=== PATIENT | male | born 1935 | race Caucasian/White ===

== ENCOUNTER 2017-09-03 17:27 | Inpatient (IN) | payer OTHER ==
[~2017-09-03] VITALS: Ht 182.9 cm; Wt 105.0 kg
[~2017-09-03 17:27] MED LIST: Apresoline PO; CHLORPROPAMIDE250 MG PO; COREG 12.5MG12.5 MG PO; COREG6.25 MG PO; ENALAPRIL20 MG PO; FLOMAX(MONOGRA0.4 MG PO; HYDROCHLOROTHIA25 MG PO; PERCOCET 325 MG1 TA2 PO; PLAVIX 75MG TAB75 MG PO; PROCARDIA XL30 MG PO; PROS5 PO; PROTONIX 40MG T40 MG PO; SIMVASTATIN40 MG PO
--- NOTE | 2017-09-03 18:03 | ED NEURO DEFICIT/STROKE ---
See Addendum History of Present Illness General Chief Complaint: Neuro Symptoms/ Deficit Stated Complaint: ?STORKE, COLÓN, FACIAL DROP, NAUSEA, HIGH BP "250" Source: patient Exam Limitations: poor historian Vital Signs & Intake/Output Vital Signs & Intake/Output Vital Signs Date Time Temp Pulse Resp B/P B/P Pulse O2 O2 Flow FiO2 Mean Ox Delivery Rate 09/03 1814 98 Room Air 09/03 1757 67 18 200/86 96 Room Air 09/03 1733 97.4 65 18 208/81 97 Room Air Allergies Coded Allergies: NO KNOWN ALLERGIES (12/02/14) Reconcile Medications [Apresoline] 75 MG PO TID BLOOD PRESSURE Carvedilol (Coreg) 12.5 MG TABLET 12.5 MG PO BID BLOOD PRESSURE Chlorpropamide 250 MG TABLET 2 TAB PO DAILY DIABETES (Reported) Reason to Stop at ADM: change to insulin Finasteride (Propecia) 5 MG TAB 5 MG PO DAILY KIDNEY Nifedipine (Procardia XL) 30 MG TAB.ER.24 60 MG PO DAILY BLOOD PRESSURE OXYCODONE HCL/ACETAMINOPHEN (Percocet 5-325 MG Tablet) 325 MG/5 MG TAB 1 TAB PO Q4P PRN PAIN SCALE 5-6 Pantoprazole Sodium (Protonix) 40 MG TABLET.DR 1 TAB PO DAILY GERD (Reported) change to IV Simvastatin 40 MG TABLET 1 TAB PO QPM CHOLESTEROL (Reported) Tamsulosin Hydrochloride (Flomax) 0.4 MG CAP.ER.24H 0.4 MG PO DAILY PROSTATE/ KIDNEY Triage Note: PT HAS NOT BEEN FEELING WELL LEFT SIDED FACIAL DROOP THAT BEGAN LATE LAST EVENING ABOUT 2100. PT HAVING DIFFICULTY AMBULATING LAST EVENING. Triage Nurses Notes Reviewed? yes Onset: Abrupt Duration: hour(s):, constant, continues in ED Severity: severe New Weakness: left facial Altered Sensations: left facial Vision Problem? Yes HPI: Patient presents for evaluation of a L facial droop that began late last night. Patient was noted by his daughter to have a right facial droop at about 9:00 last night. The patient refused medical evaluation at that time. The patient's daughter went to work today but contacted her father while at work. She noted that his speech was slurred and he had difficulty expressing himself. The patient states that in addition to the difficulty expressing himself he was drooling from the right side of the mouth. When the daughter returned from work this evening she prompted the patient to come to the emergency department for evaluation. Past History Travel History Traveled to [place] past 21 day No Medical History Any Pertinent Medical History? 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 FATHER (CAD). Hx Contributory? No Review of Systems Review of Systems Constitutional: Reports: no symptoms. EENTM: Reports: no symptoms. Respiratory: Reports: no symptoms. Cardiovascular: Reports: no symptoms. GI: Reports: no symptoms. Genitourinary: Reports: no symptoms. Musculoskeletal: Reports: no symptoms. Skin: Reports: no symptoms. Neurological/Psychological: Reports: see HPI. Hematologic/Endocrine: Reports: no symptoms. Immunologic/Allergic: Reports: no symptoms. All Other Systems: Reviewed and Negative Physical Exam Physical Exam General Appearance: SEE BELOW Cranial Nerves: SEE BELOW Comments: Gen.: Well-nourished, well-developed, no acute respiratory distress. Head: Normocephalic, atraumatic. Eyes: Normal inspection bilaterally Ears: Normal inspection bilaterally Nose: Normal inspection Throat/mouth : Moist mucosa Neck: Supple, full range of motion, no goiter, equal carotid pulses, no carotid bruits, Heart: Regular rate and rhythm, no murmurs rubs or gallops Lungs: Clear to auscultation bilaterally with normal air entry Chest: Nontender Back: Normal range of motion Abdomen: Soft, nontender, nondistended, normal bowel sounds Extremities: Normal range of motion grossly, equal radial pulses, no cyanosis clubbing or edema, normal muscle strength to all 4 extremities Neurologic: Inability to left gaze, decreased sensation of the left face, left facial droop, possible right visual field deficit temporally (patient states he can see the hand movements but it is blurry), slurred speech according to daughter, no drift Skin: warm and dry Psychiatric: Calm, cooperative, no apparent delusions or hallucinations Core Measures CVA/TIA Diagnosis: Yes NIH Stroke Scale NIH Stroke Scale Response Value Level of Consciousness alert 0 LOC Questions answers both correctly 0 LOC Commands obeys both correctly 0 Best Gaze partial gaze palsy 1 Visual Nino partial hemianopia 1 Facial Paresis minor 1 Motor Arm - Left no drift 0 Motor Arm - Right no drift 0 Motor Leg - Left no drift 0 Motor Leg - Right no drift 0 Limb Ataxia no ataxia 0 Sensory partial loss 1 Best Language mild to moderate aphasia 1 Dysarthria mild/mod slurring words 1 Total 6 Swallow Evaluation Pass Swallow eval date 09/03/17 Swallow eval time 1936 Sepsis Present: No Sepsis Focused Exam Completed? No Progress Differential Diagnosis: Cheng's Palsy, migraine COLÓN, stroke Plan of Care: Orders Procedure Date/time Status Nothing by Mouth 09/04 B Active Misc Message 09/03 1935 Active ED Holding Orders 09/03 1935 Active Admit to inpatient 09/03 1935 Active Vital Signs 09/03 1935 Active Code Status 09/03 1935 Active TROPONIN LEVEL 09/03 173 Complete PARTIAL THROMBOPLASTIN TIME 09/03 173 Complete PROTHROMBIN TIME 09/03 1737 Complete COMPREHENSIVE METABOLIC PANEL 09/03 1737 Complete CBC WITHOUT DIFFERENTIAL 09/03 1737 Complete EKG 09/03 1737 Active Current Medications Sig/Mónica Start time Last Medication Dose Stop Time Status Admin Aspirin 300 MG ONCE ONE 09/03 1944 UNVr (Aspirin) 09/03 1945 Laboratory Tests 09/03/17 1803: Anion Gap 12, Estimated GFR > 60, BUN/Creatinine Ratio 23.0, Glucose 208 H, Calcium 8.8, Total Bilirubin 1.0, AST 12 L, ALT 18 L, Alkaline Phosphatase 58, Troponin I 0.02, Total Protein 6.5, Albumin 3.6, Globulin 2.9, Albumin/Globulin Ratio 1.2, PT 11.6, INR 1.11, APTT 28, CBC w Diff NO MAN DIFF REQ, RBC 4.77, MCV 89.1, MCH 30.1, MCHC 33.8, RDW 12.6, MPV 10.3, Gran % 69.8, Lymphocytes % 22.7, Monocytes % 6.5, Eosinophils % 0.7, Basophils % 0.3, Absolute Granulocytes 5.4, Absolute Lymphocytes 1.8, Absolute Monocytes 0.5, Absolute Eosinophils 0.1, Absolute Basophils 0 Diagnostic Imaging: Discussed w/RAD: CT Scan. Radiology Impression: PATIENT: DANILO BOB PRESENT AGE: 81 PATIENT ACCOUNT NO: [id number] : 37 LOCATION: [facility] ORDERING PHYSICIAN: Emanuel BROWN SERVICE DATE: 09/03/17 EXAM TYPE: CAT - CT HEAD WO IV CONTRAST EXAMINATION: CT HEAD WITHOUT CONTRAST CLINICAL INFORMATION: Left facial droop. COMPARISON: None. TECHNIQUE: Contiguous axial images of the brain were obtained without IV contrast. DLP: 619 mGy-cm. FINDINGS : There are no pathologic extra-axial fluid collections. The lateral, third, fourth ventricles are prominent, though age-appropriate and concordant with the appearance of the sulci. There is no evidence for acute intraparenchymal hemorrhage or infarct. There is neither mass nor mass effect. There is periventricular low-attenuation present indicative of small vessel disease. 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 The paranasal sinuses and mastoid air cells are clear. There are no osseous lesions. IMPRESSION: No evidence for acute intracranial injury. . Chronic changes as stated above. DICTATED BY: Brenton Naranjo MD DATE/TIME DICTATED:09/03/171804 SENIOR GOVERNMENT PROGRAM ANALYST:TIESHA DATE/TIME TRANSCRIBED:1804 CONFIDENTIAL, DO NOT COPY WITHOUT APPROPRIATE AUTHORIZATION. < Electronically signed in Other Vendor System> SIGNED BY: Brenton Naranjo MD 09/03/171813 Initial ED EKG: NSR Comments: Although patient passed bedside swallowing evaluation, he complained of left facial and mouth numbness and made swallowing difficult. He did not cough or choke. However, given his comment on the numbness, I have placed him in NPO status. Departure Departure Disposition: STILL A PATIENT Condition: Stable Clinical Impression Primary Impression: CVA (cerebral vascular accident) Qualifiers: CVA mechanism: unspecified Qualified Code: I63.9 - Cerebral infarction, unspecified Referrals: Ruby Vincent APRN (PCP/Family) Departure Forms: Customer Survey General Discharge Information Admission Note Spoke With: Aracely Villanueva MD Documentation of Exam: Documentation of any treatments & extenuating circumstances including Concerns Regarding Discharge (functional status, medication knowledge or non-compliance, living conditions, etc.) that warrant an admission rather than observation: Patient has suffered a CVA with resulting left facial droop and dysphasia. I feel he requires hospitalization for an expedited evaluation of potentially reversible causes of stroke including carotid artery disease and cardioembolic phenomenon. In addition he should have a neurology consultation and initiation of antiplatelet therapy. MRI, Carotid Doppler studies echocardiography/ cardiology consultation and PT/OT consultations should be considered given the patient's persistent deficit. Blood pressure should be monitored and treated if excessively high. Formal swallowing evaluation should be performed to assess aspiration risk. Given this patient's advanced age and medical comorbidities I feel he will require a multiple day hospitalization.
--- NOTE | 2017-09-03 18:14 | CT SCAN REPORT ---
EXAMINATION: CT HEAD WITHOUT CONTRAST CLINICAL INFORMATION: Left facial droop. COMPARISON: None. TECHNIQUE: Contiguous axial images of the brain were obtained without IV contrast. DLP: 619 mGy-cm. FINDINGS: There are no pathologic extra-axial fluid collections. The lateral, third, fourth ventricles are prominent, though age-appropriate and concordant with the appearance of the sulci. There is no evidence for acute intraparenchymal hemorrhage or infarct. There is neither mass nor mass effect. There is periventricular low-attenuation present indicative of small vessel disease. 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 The paranasal sinuses and mastoid air cells are clear. There are no osseous lesions. IMPRESSION: No evidence for acute intracranial injury. . Chronic changes as stated above.
[2017-09-03 18:31] LABS: ABSOLUTE BASOPHIL COUNT 0 /CUMM (0.0-0.2); ABSOLUTE EOSINOPHIL COUNT 0.1 /CUMM (0.0-0.7); ABSOLUTE GRANULOCYTE CT 5.4 /CUMM (1.4-6.5); ABSOLUTE LYMPH COUNT 1.8 /CUMM (1.2-3.4); ABSOLUTE MONOCYTE COUNT 0.5 /CUMM (0.10-0.60); BASOPHIL % 0.3 % (0.0-2.0); EOSINOPHIL % 0.7 % (0-5); GRANULOCYTE % 69.8 % (42.2-75.2); HEMATOCRIT 42.5 % (42-52); MEAN CORPUSCULAR HGB 30.1 PG (27.0-31.0); MEAN CORPUSCULAR HGB CONC 33.8 G/DL (33.0-37.0); MEAN CORPUSCULAR VOLUME 89.1 FL (80.0-94.0); MEAN PLATELET VOLUME 10.3 FL (7.4-10.4); PLATELET COUNT 170 /CUMM (130-400); RBC DISTRIBUTION WIDTH 12.6 % (11.5-14.5); RED BLOOD CELL CT 4.77 /CUMM (4.70-6.10); WHITE BLOOD CELL COUNT 7.8 /CUMM (4.8-10.8)
[2017-09-03 18:49] LABS: PT 11.6 SEC (9.4-12.5); PTT 28 SEC (25-37)
--- NOTE | 2017-09-03 20:17 | History & Physical ---
Leighton ANN,[facility] 09/03/17 2016: General Information and HPI MD Statement: I have seen and personally examined DANILO LUNA and documented this H&P. The patient is a 81 year old M who presented with a patient stated chief complaint of [cva sx concerns from family]. Source of Information: patient, family Exam Limitations: language barrier, kinyarwanda speaking only History of Present Illness: 81 year old M with a pmhx of cad s/p 4 vessel cabg, htn, hld, UGI bleed, diabetes, anxiety presenting for concerns from his family regarding stroke symptoms. History is given mostly by his daughter via translation as pt only speaks kinyarwanda. The family states that the patient's last time, was 2 nights ago. When he went to bed. The family states that yesterday morning the patient was wobbly, dizzy, had double vision and what they considered fall. The family explained that the patient broke the medial plane and kneeled on 1 leg and caught himself before he fell. The family states that his symptoms persisted throughout the day. When his daughter returned home from work she noticed that he had a right facial droop and slurring of speech. They also noted his speech at times will have transient flight of ideas without complete thoughts in his sentences. The patient refused to go to the hospital. He was given Neurontin, ibuprofen and some soup. At 11 AM today the daughter called to check on the patient who stated that he did not feel good. He was forced to the emergency department from his daughter. The daughter states that the patient's overall mildly to the right and left. The patient complains of diffuse numbness of his extremities. He also noted some headaches yesterday. The daughter also noticed that the patient had blue discoloration of his feet which is now resolved. He was nauseous yesterday. He does have abdominal pain which is chronic. The patient denies any fevers, chills, chest pain, shortness breath, seizure symptoms, vision changes, or changes in elimination. Allergies/Medications Allergies: Coded Allergies: NO KNOWN ALLERGIES (12/02/14) Past History Travel History Traveled to [place] past 21 day No Medical History Neurological: NONE EENT: glaucoma Cardiovascular: CAD, hypertension, hyperlipidemia, BYPASS x 4 Respiratory: NONE Gastrointestinal: upper GI bleed Hepatic: NONE Renal: hematuria Musculoskeletal: NONE Psychiatric: anxiety Endocrine: diabetes Blood Disorders: NONE Cancer(s): NONE PACKAGE SORTER/Reproductive: NONE History of MRSA: No History of VRE: No History of CDIFF: No Surgical History Surgical History: CABG (5 yrs ago at [facility]) Past Family/Social History Family History Relations & Conditions if any BROTHER (throat cancer). FATHER (CAD). Psychosocial History Services at Home: None ETOH Use: denies use Illicit Drug Use: denies illicit drug use Review of Systems Review of Systems Constitutional: Reports: see HPI. EENTM: Reports: see HPI (R facial droop). GI: Reports: abdominal pain, nausea. Musculoskeletal: Reports: see HPI. Neurological/Psychological: Reports: see HPI (speech slur), headache, numbness. Exam & Diagnostic Data Last 24 Hrs of Vital Signs/I&O Vital Signs Date Time Temp Pulse Resp B/P B/P Pulse O2 O2 Flow FiO2 Mean Ox Delivery Rate 09/04 1159 98.7 53 18 156/68 94 Room Air 09/04 1017 99.4 69 18 170/74 09/04 1010 99.4 69 18 170/74 03 1005 99.4 69 18 170/74 97 Room Air 09/04 0851 99.5 71 18 218/108 09/04 0830 99.5 71 18 218/108 97 Room Air 09/04 0649 204/98 09/04 0542 72 16 220/90 09/04 0302 84 16 180/84 09/04 0148 64 16 214/98 09/04 0110 60 16 220/98 09/04 0046 60 16 220/98 09/04 0015 76 16 230/90 09/04 0015 76 16 230/90 09/03 2122 98.5 56 22 228/96 95 Room Air 09/03 1814 98 Room Air 09/03 1757 67 18 200/86 96 Room Air 09/03 1733 97.4 65 18 208/81 97 Room Air Intake & Output 09/04 1600 09/04 0800 09/04 0000 Intake Total 0 Output Total 500 Balance -500 0 Intake, Oral 0 Output, Urine 500 Patient 180 lb Weight Weight Estimated Measurement Method Physical Exam General Appearance Alert, Cooperative, No Acute Distress, passed bedside swallow HEENT left eye limited horizontal gaze. R eye limited medial horizontal gaze. R facial droop. Unable to smile on L side. rest of cranial nerves grossly intact. peripheral justin grossly intact but reduced on R side ?due to glaucoma., R carotid bruit Cardiovascular systolic murmur Lungs Clear to Auscultation, Normal Air Movement Abdomen Normal Bowel Sounds, Soft, No Tenderness Neurological sensation intact b/l extremities. 5/5 strength all extremities. normal babinski b/l. 2+ L patellar reflex vs 1+ on R. Vascular 2+ radial and pedal pulses Last 24 Hrs of Labs/Darell: Laboratory Tests 09/04/17 0900: Troponin I Cancelled 09/04/17 0809: Troponin I 0.04 09/04/17 0558: Anion Gap 14, Estimated GFR > 60, BUN/Creatinine Ratio 21.1, Hemoglobin A1c 7.9 H, Triglycerides 103, Cholesterol 194, LDL Cholesterol, Calc 132 H, HDL Cholesterol 42, Cholesterol/HDL Ratio 5 H, CBC w Diff NO MAN DIFF REQ, RBC 4.91 , MCV 89.6, MCH 30.3, MCHC 33.8, RDW 12.8, MPV 10.0, Gran % 62.9, Lymphocytes % 27.2, Monocytes % 7.5, Eosinophils % 1.8, Basophils % 0.6, Absolute Granulocytes 5.5, Absolute Lymphocytes 2.4, Absolute Monocytes 0.7 H, Absolute Eosinophils 0.2, Absolute Basophils 0.1 09/04/17 0046: Troponin I 0.04 09/03/17 1803: Anion Gap 12, Estimated GFR > 60, BUN/Creatinine Ratio 23.0, Glucose 208 H, Calcium 8.8, Total Bilirubin 1.0, AST 12 L, ALT 18 L, Alkaline Phosphatase 58, Troponin I 0.02, Total Protein 6.5, Albumin 3.6, Globulin 2.9, Albumin/Globulin Ratio 1.2, PT 11.6, INR 1.11, APTT 28, CBC w Diff NO MAN DIFF REQ, RBC 4.77, MCV 89.1, MCH 30.1, MCHC 33.8, RDW 12.6, MPV 10.3, Gran % 69.8, Lymphocytes % 22.7, Monocytes % 6.5, Eosinophils % 0.7, Basophils % 0.3, Absolute Granulocytes 5.4, Absolute Lymphocytes 1.8, Absolute Monocytes 0.5, Absolute Eosinophils 0.1, Absolute Basophils 0 Assessment/Plan Assessment: A: 81 year old M with a pmhx of cad s/p 4 vessel cabg, htn, hld, UGI bleed, diabetes, anxiety presenting for concerns from his family regarding stroke symptoms P: #suspected cva Trops <.[address]: No evidence for acute intracranial injury. . Chronic changes as stated above. 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 Bill -mri -carotid US -echo -lipid panel -trops ekg @ 8am -pt/ot -currently, NPO swallow eval #htn Patient has hypertension with severe medication noncompliance Hx of systolic BP >200 even upon admission 2 years ago -Blood pressure goal 180-190 -Resume oral home medications once past swallow eval #diabetes -Begin NovoLog sliding scale #DVT prophylaxis with subcutaneous heparin #Full code As Ranked By This Provider Problem List: 1. CVA (cerebral vascular accident) Qualifiers CVA mechanism: unspecified Qualified Code: I63.9 - Cerebral infarction, unspecified 2. HTN (hypertension) 3. Non compliance w medication regimen 4. Non compliance with medical treatment Core Measures/Misc (03/23) Acute Coronary Syndrome ACS Diagnosis: No Congestive Heart Failure Congestive Heart Failure Diagnosis No Cerebrovascular Accident CVA/TIA Diagnosis: Yes NIH Stroke Scale: Total 5 Date Last Known Well: 09/01/17 Symptom Start Date: 09/02/17 Swallow Evaluation Pass VTE (View Protocol) VTE Risk Factors Acute Medical Illness No Mechanical VTE Prophylaxis d/t Other No VTE Pharm Prophylaxis d/t NA PharmProphylax ordered Sepsis (View protocol) Sepsis Present: No Aracely Villanueva 09/04/17 0402: General Information and HPI Allergies/Medications Home Med list Aspirin (Ecotrin*) 81 MG TABLET.DR 1 TAB PO DAILY HEART/BLOOD (Reported) Carvedilol 6.25 MG TABLET 1 TAB PO BID HEART/BP (Reported) Chlorpropamide 250 MG TABLET 2 TAB PO DAILY DM (Reported) Enalapril Maleate 20 MG TABLET 1 TAB PO BID BP (Reported) Gabapentin (Neurontin) 100 MG CAPSULE 1 CAP PO TID UNKNOWN (Reported) Pantoprazole Sodium 40 MG TABLET.DR 1 TAB PO DAILY GI (Reported) Attending MD Review Statement Attending Statement Attending MD Statement: examined this patient, discuss w/resident/PA/AUTOMATIC TIRE TESTER, agreed w/resident/PA/AUTOMATIC TIRE TESTER, discussed with family, reviewed EMR data (avail), reviewed images, amended to note Attending Assessment/Plan: CC: Facial drooping PMH: HTN, HLD, DM, CAD S/P CABG, history of GI bleed for ear back, history of renal stone, anxiety Patient speaks Syriac. History is obtain from patient's family. Patient's family noted that patient had been more unsteady on his gait, almost fell on his knees yesterday. Yesterday evening they noticed left-sided facial drooping and speech difficulty. Symptoms persisted even this morning and patient had another fall and one episode of vomiting. Patient was brought in ER for the symptoms. Patient appears to be noncompliant with his medications according to family and he was very reluctant to come to hospital. 14 point ROS unremarkable Vitals: Afebrile, pulse in 60s, RR 18, blood pressure 208/81 on arrival, saturating well on room air. On exam: A, cooperative, no acute distress, neck supple, JVD normal, no lymphadenopathy, mucosa moist, left facial muscle weakness, incomplete eye closure, left lateral rectus palsy, vertical gaze normal, pupils equal and reactive bilaterally, strength in upper extremity and lower extremity intact, cerebellar signs negative, gait could not be assessed, +1 leg edema, no obvious skin rashes or inflammation CVS: S1-S2, RRR. RS: Clear to auscultate bilaterally. Abdomen: Soft, NT, ND, bowel sounds present. CT head without IV contrast: No evidence for acute intracranial injury. . Chronic changes as stated above. Assessment and plan 81-year-old male with multiple comorbidities and noncompliant with his home medication presented in ER for left-sided facial droop, unsteady gait, fall and one episode of vomiting. Patient's family noticed symptoms starting yesterday and persisted today so he was brought in ER. Patient speaks Syriac and does not complain about anything currently. Patient was reluctant to come to ER. Patient is found to have left facial muscle weakness, left lateral rectus weakness, deficiency in horizontal gaze, otherwise strength intact in upper and lower extremities, negative cerebellar signs. Given his acute tear of symptoms which started yesterday this appears more likely secondary to CVA, patient is out of window for any TPA. CT head was negative for hemorrhage or infarct. MRI should be obtained for further information regarding CVA versus other intracranial pathology. Patient's blood pressure is significantly elevated, patient had been noncompliant with medication at home. Given the possibility of stroke we will continue permissive hypertension at this point. + Suspected CVA + Hypertensive urgency + History of HLD, DM, CAD S/P CABG, history of GI bleed for ear back, history of renal stone, anxiety - Admit to telemetry - Continuous telemetry monitoring - Serial troponin and EKG - MRI brain without contrast - 2-D echocardiogram in a.m. - DVT prophylaxis - Obtain lipid profile - Continue aspirin - Swallow evaluation - Continue atorvastatin if passed swallow evaluation - Continue sliding scale insulin - Neurologic consult - Serial neuro checks - Carotid Dopplers - Adequate pain control - When necessary hydralazine or labetalol for blood pressure more than 220 systolic, resume his home medications once he passes swallow evaluation - OT PT evaluation Araceli Agudelo 09/04/17 0449: Core Measures/Misc (03/23) Cerebrovascular Accident Time Last Known Well: 1999 Symptom Start Time: 1999 Reason tPA not ordered Medical Contraindication (out ot tPA window) Current/Past Hx AFib/AFlutter No Resident Review Statement Resident Statement: examined this patient, discussed with logistics intern, agreed with logistics intern, discussed with family, reviewed EMR data (avail), discussed with nursing , amended to note Other Findings: Mr Luna is a 81 year old Syriac speaking man, who is from [facility] was known to be in his usual state of health unitl two days ago; last known normal was 48hrs ago by his daughter. History was limited due to language barrier. He was brought in with a chief concern of slurring of speech, gait unstadiness, high blood pressure and a mechanical fall. He has a past medical history of coronary artery disease status post CABG ([facility], 10 years ago, but follows up with Dr. Bill), hyperlipidemia, uncontrolled hypertension (medication noncompliance), history of upper GI bleed, type 2 diabetes, anxiety, nephrolithiasis status post ESWL in 2014. Nonsmoker, nonalcoholic. Travels to [facility] every 6 months, and lives with his son. No previous episode of stroke in the past. The symptoms were noticed 48 hrs prior to the presentation, with gait unsteadiness that began acutely. He later developed slurred speech, and had word finding difficulty. He was reluctant to seek medical attention, and was brought in after he had a mechanical fall the a.m. of presentation. He did not have any loss of consciousness, bladder bowel dysfunction, seizures, vision changes. Reported history of glaucoma, but did not have not have any new visual defects. No vertigo, new hearing deficits, no vertigo new hearing deficits. Other cardiac related review of systems such as palpitations, chest pain, shortness of breath, lightheadedness negative. At the time of admission, vitals-temperature 97.4, pulse rate 65, respiration 18 , blood pressure 208/81, 97% on room air. On examination, he was alert and oriented 3. No pallor was noted. He had right-sided facial droop, weakness on left side of the face, drooling on right side, horizontal gaze was affected with clear lateral gaze palsy, vertical gaze and affected. Other cranial levels within normal limits. Sensory system within normal limits. Right-sided knee reflex 1+. No cerebellar deficits, but gait could not be tested. Cardio vascular examination revealed right-sided carotid murmur, crescendo decrescendo systolic murmur. Lung examination within normal limits. Pertinent lab findings-WBC 7.8, hemoglobin 14.4. Glucose 208, platelets 170. BUN 23, serum creatinine 1.0. Liver chemistries within normal limits. Cardiac enzymes-troponin 0.02, 0.04. EKG revealed normal sinus rhythm, normal axis, T- wave flattening diffusely in V4-V6, and inferior leads. CT scan of the head did not reveal any acute intracranial pathology such as infarcts or hemorrhage, however. An old right MCA territory infarction with no midline shift. Last echocardiogram done in 2014 ([address] Dr[address] Bill) revealed moderate left ventricle hypertrophy, left ventricle ejection fraction estimated at 70%, with normal systolic function with no regional wall abnormalities. Etiology in his case that has caused an acute neurological changes is due to cerebrovascular accident, likely ischemic. He has new left-sided facial weakness, gaze deficits, mild motor deficits indicating a lesion in the middle cerebral artery, or pontine region. Persistent uncontrolled hypertension may also have caused lacunar infarcts in his case. Other causes such as defect in posterior circulation is possible, which needs to be kept in the differential. Plan: 1. CVA- he clearly has symptoms of right-sided MCA infarct, but CT scan head did not reveal any new infarct, but would treat this patient as ischemic stroke until proven otherwise by an MRI. Symptoms started approximately 48 hours, and clearly out of the TPA window. He underwent bedside swallow eval, with continued drooling from the right side. Aspirin, Lipitor started. Neurology consult to be obtained. Bedrest. Fall precautions. Physical therapy, swallow evaluation. Check carotid ultrasound. Although no cardiac symptoms were noted, but check echocardiogram for new auscultatory findings of aortic stenosis. Check lipid panel. Every 4 neuro checks. 2. Uncontrolled hypertension-medication noncompliance. Previous history of uncontrolled hypertension, and medication list is incomplete. Permissive hypertension at this time. Intravenous hydralazine, enalaprilat as needed for blood pressure above systolic 220. Trend EKG, troponin. Resume oral antihypertensives, after cleared by swallow evaluation. Cardiology to be notified. 3. Diabetes-patient on sulfonylurea. Discontinue at this time. Start insulin sliding scale, Accu-Cheks every 6. Reevaluate the need for sulfonylurea, and would benefit from metformin. Check HbA1c. Housekeepin. DVT prophylaxis-subcutaneous heparin. 2. Precautions-fall. 3. IV lines-peripheral. 4. Medication reconciliation-incomplete. Please reconcile medications, as the patient's family is unclear of the doses. 5. Consults-neurology, cardiology-Dr. Bill.
[2017-09-03] MEDS ORDERED: NEURONTIN100 M1 PO (20:55)
[2017-09-03] MEDS ORDERED: CARVEDILOL6.25 M1 PO (20:56)
[2017-09-03] MEDS ORDERED: CHLORPROPAMIDE PO (20:57)
[2017-09-03] MEDS ORDERED: PANTOPRAZOLE SO40 M1 PO (20:57)
[2017-09-03] MEDS ORDERED: ENALAPRIL MALEA20 M1 PO (20:58)
[2017-09-03] MEDS ORDERED: ASPIRIN EC81 M1 PO (20:59)
--- NOTE | 2017-09-04 04:03 | Admission Certification ---
Admission Certification Certification Statement - As attending physician, I certify that at the time of - admission, based on clinical presentation, severity of - symptoms, need for further diagnostic testing and - therapeutic interventions, and risk of adverse outcomes - without in-hospital treatment, in my clinical assessment, - this patient requires an acute hospital stay for a minimum - of two nights or longer. I have also considered psychsocial - factors such as support system, advanced age, financial - issues, cognitive issues, and failed out-patient treatments, - past re-admission history, safety of patient, and lack of - compliance as applicable. Specific rationale supporting this admission is: Suspected CVA
[2017-09-04 06:07] LABS: ABSOLUTE BASOPHIL COUNT 0.1 /CUMM (0.0-0.2); ABSOLUTE EOSINOPHIL COUNT 0.2 /CUMM (0.0-0.7); ABSOLUTE GRANULOCYTE CT 5.5 /CUMM (1.4-6.5); ABSOLUTE LYMPH COUNT 2.4 /CUMM (1.2-3.4); ABSOLUTE MONOCYTE COUNT 0.7 /CUMM (0.10-0.60); BASOPHIL % 0.6 % (0.0-2.0); EOSINOPHIL % 1.8 % (0-5); GRANULOCYTE % 62.9 % (42.2-75.2); MEAN CORPUSCULAR HGB 30.3 PG (27.0-31.0); MEAN CORPUSCULAR HGB CONC 33.8 G/DL (33.0-37.0); MEAN CORPUSCULAR VOLUME 89.6 FL (80.0-94.0); PLATELET COUNT 173 /CUMM (130-400); RBC DISTRIBUTION WIDTH 12.8 % (11.5-14.5); RED BLOOD CELL CT 4.91 /CUMM (4.70-6.10); WHITE BLOOD CELL COUNT 8.7 /CUMM (4.8-10.8)
--- NOTE | 2017-09-04 07:08 | PN- Housestaff ---
Dontrell ANN,[facility] 09/04/17 0708: Subjective Follow-up For: Suspected CVA Hypertensive urgency Subjective: Patient is seen and examined at bedside, he gabonese speaking and does not provide any complaints, continues to have facial droop, will be going to CTA and MRI today Review of Systems Constitutional: Reports: see HPI. Objective Last 24 Hrs of Vital Signs/I&O Vital Signs Date Time Temp Pulse Resp B/P B/P Pulse O2 O2 Flow FiO2 Mean Ox Delivery Rate 09/04 1017 99.4 69 18 170/74 09/04 1010 99.4 69 18 170/74 09/04 1005 99.4 69 18 170/74 97 Room Air 09/04 0851 99.5 71 18 218/108 09/04 0830 99.5 71 18 218/108 97 Room Air 09/04 0649 204/98 09/04 0542 72 16 220/90 09/04 0302 84 16 180/84 09/04 0148 64 16 214/98 09/04 0110 60 16 220/98 09/04 0046 60 16 220/98 09/04 0015 76 16 230/90 09/04 0015 76 16 230/90 09/03 2122 98.5 56 22 228/96 95 Room Air 09/03 1814 98 Room Air 09/03 1757 67 18 200/86 96 Room Air 09/03 1733 97.4 65 18 208/81 97 Room Air Intake & Output 09/04 1600 09/04 0800 09/04 0000 Intake Total 0 Output Total 500 Balance -500 0 Intake, Oral 0 Output, Urine 500 Patient 180 lb Weight Weight Estimated Measurement Method Physical Exam General Appearance: Alert, Oriented X3, Cooperative, No Acute Distress HEENT: Atraumatic, PERRLA, EOMI, Mucous Membr. moist/pink Cardiovascular: Normal S1, Normal S2, No Murmurs Lungs: Clear to Auscultation Abdomen: Normal Bowel Sounds, Soft, No Tenderness Neurological: Normal Speech, Strength at 5/5 X4 Ext, Normal Tone, Sensation Intact, left facial muscle weakness Extremities: No Clubbing, No Cyanosis, No Edema Assessment/Plan Assessment: 81-year-old male with PMH of HTN, HLD, DM, CAD S/P CABG, history of GI bleed , history of renal stone, anxiety non compliant with his home meds presented in ER for left-sided facial droop, unsteady gait, fall and one episode of vomiting. For 2 days which make him outside of the TPA window. Patient's blood pressure is significantly elevated, patient had been noncompliant with medication at home. #Suspected CVA: Continue to monitor on telemetry Vitals every shift Neuro checks every 2 hours MRI pain CTA brain Neurology consult placed with appreciated the recommendation LDL cholesterol was high, Start statin Start Plavix 75 mg daily Continue aspirin 81 mg daily #Hypertensive urgency Systolic Blood pressure was noticed to be above 200 The patient was given 1 dose of labetalol We'll continue home meds including lisinopril and carvedilol Allow permissive hypertension(A 20% drop in BP is acceptable over the next 24 hours) Echocardiography # DM: Fingerstick glucose Insulin sliding scale Patient is full code DVT prophylaxis with subcutaneous heparin Heart healthy diet Problem List: 1. CVA (cerebral vascular accident) 2. Hypertensive urgency Pain Ratin Pain Location: n/A Pain Goal: Remain pain free Pain Plan: pathway Tomorrow's Labs & Rationales: cbc beBrenton Rain MD 09/04/17 1558: Attending MD Review Statement Attending Statement Attending MD Statement: examined this patient, discuss w/resident/PA/GERIATRICS PHYSICIAN, agreed w/resident/PA/GERIATRICS PHYSICIAN, discussed with family, reviewed EMR data (avail), discussed with nursing, reviewed images, amended to note Attending Assessment/Plan: The patient was seen and discussed with house staff. CTA of neck & head done- no significant vascular occlusion. CVA most likely secondary to HTN (he was non- compliant with medication). MRI unavailable at present. Neurology input appreciated. Discussed with grandson who stated the patient does have some dysarthria, however no expressive or receptive aphasia.
--- NOTE | 2017-09-04 09:10 | Cons- Cardiology ---
General Information and HPI Consulting Request Date of Consult: 09/04/17 Requested By: Aracely Villanueva MD History of Present Illness: Gray is a 81 year old male who carries a history of hypertension, diabetes mellitus, and coronary artery disease s/p bypass x4. He also carries a prior history of GI bleed. About two days ago this patient was noted to be unwell. He was off balance and appeared to have facial asymmetry. His speech was a bit slurred according to his [id number]. Because he was not improving he was brought to the ER today. He denies any chest discomfort, shortness of breath, lightheadedness or palpitations. This patient has been non-compliant with office follow-ups, taking medications and refused to take aspirin due to concern about a prior GI bleed. This patient was last admitted to the hospital for a severe hypertensive excursion. He did not know his medications at that time and I was convinced that he was not taking them correctly. On last office visit he did report some mild intermittent chest tightness, however, it was not entirely clear if it was exacerbated by physical exertion. It apparently was a non-radiating discomfort. any discomfort, shortness of breath, lightheadedness, or palpitations. Of note, it is rather difficult to communicate with this patient and his daughter was interpreting.He has a history of noncompliance with medications and follow up. b.i.d. Gray apparently had tried the high dose of Coreg and it created some symptoms of lightheadedness and therefore he returned back to his previous dose of 6.25 mg b.i.d. On last visit I started nifedipine but the patient never took this medication. To Review the Patient's Past History: I initially saw this patient for a moderate exertional precordial chest pressure that radiated to his neck, associated with dyspnea and diaphoresis. A cardiac catheterization showed three vessel coronary artery disease, which led to bypass surgery consisting of a saphenous vein graft to the first diagonal, a separate saphenous vein graft to the left circumflex, and a sequential saphenous vein graft to the right PDA and right posterior marginal artery. The details of his cardiac catheterization are as follows: The left main was normal. The LAD harbored luminal irregularities throughout its course with a 70% distal stenosis prior to wrapping around the apex. The LAD parented a moderate sized first diagonal branch with a 70% ostial stenosis. It also parented a small to moderate size second diagonal branch with a 60% ostial stenosis. The left circumflex has a 70% mid stenosis. It parents an OM-2 branch, which was a bifurcating vessel. This vessel has a 99% ostial stenosis and receives left to left collaterals. The right coronary artery is dominant and diffusely diseased with a 50% mid stenosis and a 75% distal stenosis. The RCA parents a posterior lateral branch with a 70% stenosis. Off this stenosis, there is a secondary branch with a 90% ostial stenosis. Left ventriculography showed an overall EF of 60%. In November 2008, the patient had a stress test which did show evidence of lateral and inferior lateral ischemia with an overall normal EF of 65%. The patient was able to exercise for 6 minutes 9 seconds following a Rubin protocol and had no chest discomfort with this activity. There were significant downsloping ST depressions in the inferior and lateral leads. I was inclined to treat this with medical therapy and in that regard started him on Nitroglycerin Patch at 0.4 mg an hour for 12 hours a day, which the patient has not been taking. The patient's most recent echocardiogram from November of 2008 showed mild to moderate left ventricular hypertrophy likely related to hypertension. His overall EF was normal. In terms of cardiac valves, there was mild mitral, mild tricuspid, and trace pulmonic regurgitation. Allergies/Medications Allergies: Coded Allergies: NO KNOWN ALLERGIES (12/02/14) Home Med List: Aspirin (Ecotrin*) 81 MG TABLET.DR 1 TAB PO DAILY HEART/BLOOD (Reported) Carvedilol 6.25 MG TABLET 1 TAB PO BID HEART/BP (Reported) Chlorpropamide 250 MG TABLET 2 TAB PO DAILY DM (Reported) Enalapril Maleate 20 MG TABLET 1 TAB PO BID BP (Reported) Gabapentin (Neurontin) 100 MG CAPSULE 1 CAP PO TID UNKNOWN (Reported) Pantoprazole Sodium 40 MG TABLET.DR 1 TAB PO DAILY GI (Reported) Review of Systems Review of Systems: A review of systems was unremarkable other than the above. 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 FATHER (CAD). Family History Reviewed? Brother: CAD in 70's. Psychosocial History Services at Home: None ETOH Use: denies use Illicit Drug Use: denies illicit drug use Exam & Diagnostic Data Vital Signs and I&O Vital Signs Date Time Temp Pulse Resp B/P B/P Pulse O2 O2 Flow FiO2 Mean Ox Delivery Rate 09/04 0851 99.5 71 18 218/108 09/04 0830 99.5 71 18 218/108 97 Room Air 09/04 0649 204/98 09/04 0542 72 16 220/90 09/04 0302 84 16 180/84 09/04 0148 64 16 214/98 09/04 0110 60 16 220/98 09/04 0046 60 16 220/98 09/04 0015 76 16 230/90 09/04 0015 76 16 230/90 09/03 2122 98.5 56 22 228/96 95 Room Air 09/03 1814 98 Room Air 09/03 1757 67 18 200/86 96 Room Air 09/03 1733 97.4 65 18 208/81 97 Room Air Intake & Output 09/04 1600 09/04 0800 09/04 0000 09/03 1600 09/03 0800 09/03 0000 Intake Total 0 Output Total 500 Balance -500 0 Intake, Oral 0 Output, Urine 500 Patient 180 lb Weight Weight Estimated Measurement Method Physical Exam: General: WD/WN male in NAD; alert and oriented x 3 HEENT: left facial droop, atraumatic, PERRl, inability to look to the left Neck: no JVD, no carotid bruit Heart: RRR with 2/6 systolic murmur Lungs: clear bilaterally Abdomen: soft, NT, +ve bowel sounds Extremties: No edema Neuro: left facial droop, left sided neglect, possible inability to perform a left sided gaze, slightly slurred speech Assessment/Plan Assessment/Plan * This patient appears to have had a stroke with late presentation since it occured two days ago. He has not followed up in the office and his blood pressure is out of control. He has a history of not taking his medications and previously refused to take aspirin due to concern about another GI bleed. Obtain an echocardiogram and carotid dopplers. * We will allow permissive hypertension especially since this patient is used to very high pressures. A 20% drop in BP is reasonable over the next 24 hours. Continue Enalapril and Coreg for now since he may not have been taking these medications and then increase as necessary to reach our BP goals. Low sodium diet. * Begin Plavix and a statin. Consult Acknowledgment - Thank you for your consult request.
--- NOTE | 2017-09-04 09:11 | Cons- Neurology ---
General Information and HPI Consulting Request Date of Consult: 09/04/17 Requested By: Aracely Villanueva MD Reason for Consult: stroke Source of Information: EMR, ED MD History of Present Illness: 81-year-old man brought in after his [id number] noticed a left-sided facial droop. Symptoms had been present for at least 24 hours. He initially refused medical attention. Systolic blood pressure was over 200 in the ED. 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 He has apparently avoided aspirin due to a concern about GI bleed. He has also had some gait instability over the past few days. Some left-sided inattention has also been noted by staff. He is Croatian speaking primarily, and wears glasses and hearing aids. Hence, even with the manager intensive care program, the history was difficult to obtain directly from the patient. Allergies/Medications Allergies: Coded Allergies: NO KNOWN ALLERGIES (12/02/14) Home Med List: Aspirin (Ecotrin*) 81 MG TABLET.DR 1 TAB PO DAILY HEART/BLOOD (Reported) Carvedilol 6.25 MG TABLET 1 TAB PO BID HEART/BP (Reported) Chlorpropamide 250 MG TABLET 2 TAB PO DAILY DM (Reported) Enalapril Maleate 20 MG TABLET 1 TAB PO BID BP (Reported) Gabapentin (Neurontin) 100 MG CAPSULE 1 CAP PO TID UNKNOWN (Reported) Pantoprazole Sodium 40 MG TABLET.DR 1 TAB PO DAILY GI (Reported) Current Medications: Current Medications Sig/Mónica Start time Last Medication Dose Route Stop Time Status Admin Aspirin 0 .STK-MED ONE 09/04 1012 DC PO Aspirin 81 MG DAILY 09/04 1000 AC 09/04 PO 1010 Aspirin 300 MG ONCE ONE 09/03 1945 DC 09/03 LA 09/03 194 2141 Atorvastatin Calcium 80 MG 1700 09/04 1700 AC PO Carvedilol 6.25 MG BID 09/04 1000 AC 09/04 PO 1017 Clopidogrel Bisulfate 0 .STK-MED ONE 09/04 1158 DC PO Clopidogrel Bisulfate 75 MG DAILY 09/04 1117 AC 09/04 PO 1153 Enalaprilat 0.0625 MG ONCE ONE 09/03 2330 CAN IV 09/03 2331 Heparin Sodium 0 .STK-MED ONE 09/04 0725 DC (Porcine) .ROUTE Heparin Sodium 0 .STK-MED ONE 09/03 2215 DC (Porcine) .ROUTE Heparin Sodium 5,000 UNIT Q8 09/03 2200 AC 09/04 (Porcine) SC 0722 Hydralazine HCl 5 MG ONCE ONE 09/04 0100 DC 09/04 IV 09/04 0101 0110 Hydralazine HCl 0 .STK-MED ONE 09/04 0010 DC .ROUTE Hydralazine HCl 5 MG ONCE ONE 09/03 2345 DC 09/04 IV 09/03 2346 0015 Insulin Aspart 0 TIDAC 09/04 1700 AC SC Insulin Human Regular 0 Q6 09/03 2359 DC 09/04 SC 0015 Labetalol HCl 10 MG ONCE ONE 09/04 0900 DC 09/04 IV 09/04 0901 0851 Labetalol HCl 0 .STK-MED ONE 09/04 0855 DC IV Lisinopril 0 .STK-MED ONE 09/04 1012 DC PO Lisinopril 20 MG DAILY 09/04 1000 AC 09/04 PO 1010 Lisinopril 20 MG DAILY 09/03 2330 CAN PO Morphine Sulfate 2 MG Q8P PRN 09/03 2145 AC IV Review of Systems Review of Systems: Limited Past History Travel History Traveled to [place] past 21 day No Medical History Neurological: NONE EENT: glaucoma Cardiovascular: CAD, hypertension, hyperlipidemia, BYPASS x 4 Respiratory: NONE Gastrointestinal: upper GI bleed Hepatic: NONE Renal: hematuria Musculoskeletal: NONE Psychiatric: anxiety Endocrine: diabetes Blood Disorders: NONE Cancer(s): NONE 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 FATHER (CAD). Psychosocial History Services at Home: None ETOH Use: denies use Illicit Drug Use: denies illicit drug use Exam & Diagnostic Data Vital Signs and I&O Vital Signs Date Time Temp Pulse Resp B/P B/P Pulse O2 O2 Flow FiO2 Mean Ox Delivery Rate 09/04 1159 98.7 53 18 156/68 94 Room Air 09/04 1017 99.4 69 18 170/74 09/04 1010 99.4 69 18 170/74 09/04 1005 99.4 69 18 170/74 97 Room Air 09/04 0851 99.5 71 18 218/108 09/04 0830 99.5 71 18 218/108 97 Room Air 09/04 0649 204/98 09/04 0542 72 16 220/90 09/04 0302 84 16 180/84 09/04 0148 64 16 214/98 09/04 0110 60 16 220/98 09/04 0046 60 16 220/98 09/04 0015 76 16 230/90 09/04 0015 76 16 230/90 09/03 2122 98.5 56 22 228/96 95 Room Air 09/03 1814 98 Room Air 09/03 1757 67 18 200/86 96 Room Air 09/03 1733 97.4 65 18 208/81 97 Room Air Intake & Output 09/04 1600 09/04 0800 09/04 0000 Intake Total 0 Output Total 500 Balance -500 0 Intake, Oral 0 Output, Urine 500 Patient 180 lb Weight Weight Estimated Measurement Method Physical Exam: Awake alert sitting up on the ED stretcher in no apparent distress Head normocephalic atraumatic Neck supple No audible carotid or cranial bruits Heart regular rate and rhythm Abdomen soft note Extremities no clubbing cyanosis or edema. Intact peripheral pulses Neurologic exam: Awake and alert, no apparent disfluency of speech. Dysarthric. Was able to read the word "mama". Was able to name several common objects. Cranial nerves: Blinks to visual threat in all 4 quadrants Not cooperative for funduscopic exam Pupils equal round reactive to light Extraocular movements full Mild right-sided gaze preference Mild to moderate left lower facial weakness Symmetric elevation of the uvula and palate Symmetric shoulder shrug Midline tongue protrusion. Hearing diminished bilaterally Motor: Muscle bulk tone and strength are within normal limits. Satellite sign is negative. There is no drift. There are no abnormal involuntary movements. There is no limb ataxia. Light touch sensation intact Deep tendon reflexes symmetrically trace to absent Plantar responses flexor No limb ataxia Gait not tested Last 48 Hours of Lab Results: Laboratory Tests 09/04 09/04 09/04 0900 0809 0558 Chemistry Sodium (137 - 145 mmol/L) 143 Potassium (3.5 - 5.1 mmol/L) 3.3 L Chloride (98 - 107 mmol/L) 105 Carbon Dioxide (22 - 30 mmol/L) 24 Anion Gap (5 - 16) 14 BUN (9 - 20 mg/dL) 19 Creatinine (0.7 - 1.2 mg/dL) 0.9 Estimated GFR (>60 ml/min) > 60 BUN/Creatinine Ratio (7 - 25 %) 21.1 Hemoglobin A1c (4.2 - 5.8 %) 7.9 H Troponin I (<0.11 ng/ml) Cancelled 0.04 Triglycerides (<150 mg/dL) 103 Cholesterol (< 200 MG/DL) 194 LDL Cholesterol, Calc (65 - 129 mg/dL) 132 H HDL Cholesterol (40 - 60 mg/dL) 42 Cholesterol/HDL Ratio (0.00 - 4.88 %) 5 H Hematology CBC w Diff NO MAN DIFF REQ WBC (4.8 - 10.8 /CUMM) 8.7 RBC (4.70 - 6.10 /CUMM) 4.91 Hgb (14.0 - 18.0 G/DL) 14.9 Hct (42 - 52 %) 44.0 MCV (80.0 - 94.0 FL) 89.6 MCH (27.0 - 31.0 PG) 30.3 MCHC (33.0 - 37.0 G/DL) 33.8 RDW (11.5 - 14.5 %) 12.8 Plt Count (130 - 400 /CUMM) 173 MPV (7.4 - 10.4 FL) 10.0 Gran % (42.2 - 75.2 %) 62.9 Lymphocytes % (20.5 - 51.1 %) 27.2 Monocytes % (1.7 - 9.3 %) 7.5 Eosinophils % (0 - 5 %) 1.8 Basophils % (0.0 - 2.0 %) 0.6 Absolute Granulocytes (1.4 - 6.5 /CUMM) 5.5 Absolute Lymphocytes (1.2 - 3.4 /CUMM) 2.4 Absolute Monocytes (0.10 - 0.60 /CUMM) 0.7 H Absolute Eosinophils (0.0 - 0.7 /CUMM) 0.2 Absolute Basophils (0.0 - 0.2 /CUMM) 0.1 09/046 1803 Chemistry Sodium (137 - 145 mmol/L) 141 Potassium (3.5 - 5.1 mmol/L) 3.8 Chloride (98 - 107 mmol/L) 104 Carbon Dioxide (22 - 30 mmol/L) 25 Anion Gap (5 - 16) 12 BUN (9 - 20 mg/dL) 23 H Creatinine (0.7 - 1.2 mg/dL) 1.0 Estimated GFR (>60 ml/min) > 60 BUN/Creatinine Ratio (7 - 25 %) 23.0 Glucose (65 - 99 mg/dL) 208 H Calcium (8.4 - 10.2 mg/dL) 8.8 Total Bilirubin (0.2 - 1.3 mg/dL) 1.0 AST (17 - 59 U/L) 12 L ALT (21 - 72 U/L) 18 L Alkaline Phosphatase (< 127 U/L) 58 Troponin I (<0.11 ng/ml) 0.04 0.02 Total Protein (6.3 - 8.2 g/dL) 6.5 Albumin (3.5 - 5.0 g/dL) 3.6 Globulin (1.9 - 4.2 gm/dL) 2.9 Albumin/Globulin Ratio (1.1 - 2.2 %) 1.2 Coagulation PT (9.4 - 12.5 SEC) 11.6 INR (0.90 - 1.17) 1.11 APTT (25 - 37 SEC) 28 Hematology CBC w Diff NO MAN DIFF REQ WBC (4.8 - 10.8 /CUMM) 7.8 RBC (4.70 - 6.10 /CUMM) 4.77 Hgb (14.0 - 18.0 G/DL) 14.4 Hct (42 - 52 %) 42.5 MCV (80.0 - 94.0 FL) 89.1 MCH (27.0 - 31.0 PG) 30.1 MCHC (33.0 - 37.0 G/DL) 33.8 RDW (11.5 - 14.5 %) 12.6 Plt Count (130 - 400 /CUMM) 170 MPV (7.4 - 10.4 FL) 10.3 Gran % (42.2 - 75.2 %) 69.8 Lymphocytes % (20.5 - 51.1 %) 22.7 Monocytes % (1.7 - 9.3 %) 6.5 Eosinophils % (0 - 5 %) 0.7 Basophils % (0.0 - 2.0 %) 0.3 Absolute Granulocytes (1.4 - 6.5 /CUMM) 5.4 Absolute Lymphocytes (1.2 - 3.4 /CUMM) 1.8 Absolute Monocytes (0.10 - 0.60 /CUMM) 0.5 Absolute Eosinophils (0.0 - 0.7 /CUMM) 0.1 Absolute Basophils (0.0 - 0.2 /CUMM) 0 Imaging/Other Studies: PATIENT: DANILO BOB PRESENT AGE: 81 PATIENT ACCOUNT NO: [id number] : 37 LOCATION: [facility] ORDERING PHYSICIAN: Emanuel BROWN SERVICE DATE: 09/03/17 EXAM TYPE: CAT - CT HEAD WO IV CONTRAST EXAMINATION: CT HEAD WITHOUT CONTRAST CLINICAL INFORMATION: Left facial droop. COMPARISON: None. TECHNIQUE: Contiguous axial images of the brain were obtained without IV contrast. DLP: 619 mGy-cm. FINDINGS: There are no pathologic extra-axial fluid collections. The lateral, third, fourth ventricles are prominent, though age-appropriate and concordant with the appearance of the sulci. There is no evidence for acute intraparenchymal hemorrhage or infarct. There is neither mass nor mass effect. There is periventricular low-attenuation present indicative of small vessel disease. 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 The paranasal sinuses and mastoid air cells are clear. There are no osseous lesions. IMPRESSION: No evidence for acute intracranial injury. . Chronic changes as stated above. DICTATED BY: Brenton Naranjo MD DATE/TIME DICTATED:09/03/171804 SANITATION DIRECTOR:TIESHA DATE/TIME TRANSCRIBED:09/03/171804 CONFIDENTIAL, DO NOT COPY WITHOUT APPROPRIATE AUTHORIZATION. <Electronically signed in Other Vendor System> SIGNED BY: Brenton Naranjo MD 09/03/171813 he venous sinuses opacify normally. IMPRESSION: 1. There are no acute bleeds or territorial infarcts. There are no masses or areas of abnormal enhancement. 2. There are sequelae of a chronic infarct in the right frontal lobe. There is diffuse volume loss and there are chronic microvascular ischemic changes. There are thalamic lacunar infarcts. 3. 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 4. No focal stenoses or vascular malformations are noted in the intracranial circulation. There is mild irregularity of the AICA vessels bilaterally as described above. DICTATED BY: Gallito Weller MD DATE/TIME DICTATED:09/04/171134 Assessment/Plan Assessment: 81-year-old man with radiographic evidence of her an old right frontal stroke, now with clinical evidence of a new ischemic stroke, likely also in the right MCA territory. History of hypertension reportedly with medication nonadherence. It is unknown whether or not the patient is adherent with antiplatelet therapy at home. 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 Consult Acknowledgment - Thank you for your consult request.
--- NOTE | 2017-09-04 11:55 | CT SCAN REPORT ---
EXAMINATION: CT ANGIOGRAM HEAD CLINICAL INFORMATION: Facial droop. Assess for CVA. COMPARISON: CT scan of the head 09/03/2017. TECHNIQUE: A noncontrast axial CT scan of the head was obtained. Test bolus sequences followed by intravenous administration 95 mL of Optiray 350 intravenous contrast. Helical imaging was performed in the axial plane from the mediastinum to the skull vertex. Delayed postcontrast imaging of the head was also performed. The data was processed at the cardiac catheterization technologist's workstation for generation of MIP sequences. The degree of stenosis is based off NASCET criteria. Three-dimensional volume rendered reformatted images were also generated at an offline 3-D workstation. DLP: 1490.42 mGy-cm FINDINGS: CT Head: There is no evidence of acute intracranial hemorrhage or territorial infarction. No abnormal mass-effect or midline shift is seen. Stubbs to white matter differentiation is well preserved. No extra-axial fluid collections are identified. There is no abnormal enhancement. There is commensurate prominence of the ventricles and sulci consistent with [id number] diffuse volume loss. There are extensive areas of low attenuation in the periventricular and subcortical white matter, consistent with chronic microvascular ischemic changes. In addition, there are bilateral thalamic lacunar infarcts. There is an area of gliosis and encephalomalacia in the right frontal lobe, consistent with sequelae of a chronic infarct. There is some ex-vacuo dilatation of the anterior horn of the body of the right lateral ventricle. The soft tissues are unremarkable. There are atheromatous calcifications of the cavernous internal carotid arteries bilaterally. The visualized mastoid air cells and paranasal sinuses are well-aerated. There are no acute osseous findings. The posterior arch of C1 is unfused. CTA Head: In the anterior circulation, the distal internal carotid arteries within the neck appear normal. The cavernous internal carotid arteries demonstrate atheromatous calcification. There is mild ectasia of the right cavernous internal carotid artery. 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 The left anterior cerebral artery A1 and A2 segments have slightly thinner caliber compared to the right, but there is no evidence of focal stenosis. The multiple cerebral arteries bilaterally demonstrate normal caliber with no evidence of focal stenosis, aneurysm or vascular malformation. There is normal arborization of the middle cerebral artery branches. The anterior communicating artery is normal. In the posterior circulation, the vertebral arteries are codominant. The intradural vertebral arteries have uniform caliber. The basilar artery appears normal. The bilateral AICA vessels demonstrates slight irregularity. The posterior cerebral arteries have normal caliber; the left posterior cerebral artery arises primarily off the anterior circulation, which is a normal variant. The venous sinuses opacify normally. IMPRESSION: 1. There are no acute bleeds or territorial infarcts. There are no masses or areas of abnormal enhancement. 2. There are sequelae of a chronic infarct in the right frontal lobe. There is diffuse volume loss and there are chronic microvascular ischemic changes. There are thalamic lacunar infarcts. 3. 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 4. No focal stenoses or vascular malformations are noted in the intracranial circulation. There is mild irregularity of the AICA vessels bilaterally as described above.
--- NOTE | 2017-09-04 14:12 | CT SCAN REPORT ---
EXAMINATION: CT ANGIOGRAM NECK CLINICAL INFORMATION: Right facial droop. COMPARISON: CTA performed earlier the same day. TECHNIQUE: Test bolus sequences followed by administration of 94 mL of Omnipaque 300 intravenous contrast. Helical imaging was performed in the axial plane of the neck. The data was processed at the tissue technologist workstation for generation of MIP sequences. Three-dimensional volume rendered reformatted images were also generated at an offline 3-D workstation. The degree of stenosis was estimated using NASCET criteria. DLP: 468 mGy-cm FINDINGS: Neck CTA: There is common origin of the right brachiocephalic artery and left common carotid artery. There are atheromatous changes involving the aortic arch but no significant stenosis of the great vessel origins. The common carotid arteries demonstrate atheromatous change without significant stenosis. There are atheromatous changes at the bilateral carotid siphons extending to the internal carotid arteries but without flow-limiting stenosis. There is calcific plaque at the bilateral vertebral artery origins. The cervical vertebral arteries demonstrate mild scattered atheromatous change but without significant stenosis. Additional findings: The imaged portions of the brain redemonstrates a chronic-appearing infarct in the right inferior frontal lobe. The proximal [place] vessels are widely patent and are fully described in the head CTA performed earlier today. The lung apices are grossly clear without evidence of consolidation or mass. There are changes related to median sternotomy. The main pulmonary artery is mildly dilated measuring up to 3.2 cm reflecting pulmonary arterial hypertension. No neck mass or fluid collection is seen. There is no suspicious cervical lymphadenopathy. There are multilevel degenerative changes in the cervical spine. IMPRESSION: Atheromatous changes in the neck including at the bilateral carotid bifurcations but without hemodynamically significant stenosis. This critical result was discussed with Dr. Fermin on 09/04/2017 2:05 PM, and it was ascertained that the content and urgency of the report was understood at the time of direct communication.
[2017-09-04 14:38] VITALS: BP 170/70
--- NOTE | 2017-09-04 16:00 | Patient Discharge Instructions ---
Discharge Instructions General Discharge Information You were seen/treated for: CVA Special Instructions: 1- Please follow up with your PCP in 1 week of discharge 2- Please follow up with neurologist in 1 week of discharge Acute Coronary Syndrome Inclusion Criteria At DC or during hospital stay patient has or had the following: ACS DIAGNOSIS No Discharge Core Measures Meds if any: Prescribed or Continued at Discharge Meds if any: NOT Prescribed or Continued at Discharge Congestive Heart Failure Inclusion Criteria At DC or during hospital stay patient has or had the following: CHF DIAGNOSIS No Discharge Core Measures Meds if any: Prescribed or Continued at Discharge Meds if any: NOT Prescribed or Continued at Discharge Cerebrovascular accident Inclusion Criteria At DC or during hospital stay patient has or had the following: CVA/TIA Diagnosis Yes Discharge Core Measures Meds if any: Prescribed or Continued at Discharge Antithrombotic Yes Statin (required if LDL =>70) Yes Anticoagulant Yes Meds if any: NOT Prescribed or Continued at Discharge Venous thromboembolism Inclusion Criteria VTE Diagnosis No VTE Type NONE VTE Confirmed by (Test) NONE Discharge Core Measures - Per Current guidelines, there needs to be overlap - treatment for the first 5 days of Warfarin therapy. - If discharged on Warfarin prior to 5 days of - overlap therapy, the patient will need to be - assessed for post discharge needs including - *Post discharge parental anticoagulation - *Warfarin and/or parental anticoagulation education - *Follow up date to check INR post discharge At least 5 days overlap therapy as Inpatient No Meds if any: Prescribed or Continued at Discharge Note: Overlap Therapy is Warfarin and Anticoagulant Meds if any: NOT Prescribed or Continued at Discharge
[2017-09-04 22:21] VITALS: BP 184/86
[2017-09-05 06:49] VITALS: BP 236/112
[2017-09-05 06:51] VITALS: BP 190/92
--- NOTE | 2017-09-05 07:05 | PN- Housestaff ---
Dontrell ANN,Bridget 09/05/17 0705: Subjective Follow-up For: Suspected CVA Hypertensive urgency Subjective: Patient is seen and examined at bedside, yoruba speaking and does not provide any complaints, continues to have facial droop, blood pressure was noticed to be running high, 220. will be going to MRI today Review of Systems Constitutional: Reports: see HPI. Objective Last 24 Hrs of Vital Signs/I&O Vital Signs Date Time Temp Pulse Resp B/P B/P Pulse O2 O2 Flow FiO2 Mean Ox Delivery Rate 09/05 0922 64 164/64 09/05 0922 64 164/64 09/05 0651 190/92 09/05 0649 97.7 69 18 236/112 94 Room Air 09/05 0615 63 236/110 09/04 2221 97.4 53 18 184/86 97 Room Air 09/04 2200 53 184/86 09/04 1438 98.1 52 18 170/70 96 Room Air 09/04 1410 98.6 62 19 162/72 95 Room Air 09/04 1159 98.7 53 18 156/68 94 Room Air Physical Exam General Appearance: Alert, Oriented X3, Cooperative, No Acute Distress HEENT: Atraumatic, PERRLA, Mucous Membr. moist/pink, left eye limited horizontal gaze, right eye limited medial gaze, rt facial droop Neck: Supple, No JVD Cardiovascular: Normal S1, Normal S2, No Murmurs Lungs: Clear to Auscultation Abdomen: Normal Bowel Sounds, Soft, No Tenderness Neurological: Normal Speech, Strength at 5/5 X4 Ext, Normal Tone, Sensation Intact, right facial droop Extremities: No Clubbing, No Cyanosis, No Edema Vascular: Normal Pulses Current Medications: Current Medications Sig/Mónica Start time Last Medication Dose Route Stop Time Status Admin Amlodipine Besylate 5 MG DAILY 09/05 1000 AC PO Aspirin 81 MG DAILY 09/04 1000 AC 09/05 PO 0921 Atorvastatin Calcium 80 MG 1700 09/04 1700 AC 09/04 PO 1700 Carvedilol 6.25 MG BID 09/04 1000 AC 09/05 PO 0922 Clopidogrel Bisulfate 0 .STK-MED ONE 09/04 1158 DC PO Clopidogrel Bisulfate 75 MG DAILY 09/04 1117 AC 09/05 PO 0921 Heparin Sodium 5,000 UNIT Q8 09/03 2200 AC 09/05 (Porcine) SC 0615 Hydralazine HCl 5 MG ONCE ONE 09/05 0615 DC 09/05 IV 09/05 0616 0615 Insulin Aspart 0 TIDAC 09/04 1700 AC SC Insulin Human Regular 0 Q6 09/03 2359 DC 09/04 SC 0015 Lisinopril 20 MG DAILY 09/04 1000 AC 09/05 PO 0922 Morphine Sulfate 2 MG Q8P PRN 09/03 2145 AC IV Potassium Chloride 40 MEQ ONCE ONE 09/04 1630 DC 09/04 PO 09/04 1631 1659 Last 24 Hrs of Lab/Darell Results Last 24 Hrs of Labs/Mics: Laboratory Tests 09/05/17 0628: Anion Gap 12, Estimated GFR > 60, BUN/Creatinine Ratio 21.8, CBC w Diff NO MAN DIFF REQ, RBC 4.80, MCV 89.1, MCH 30.2, MCHC 33.8, RDW 12.8, MPV 10.7 H, Gran % 57.5, Lymphocytes % 31.4, Monocytes % 8.8, Eosinophils % 1.5, Basophils % 0.8, Absolute Granulocytes 4.3, Absolute Lymphocytes 2.3, Absolute Monocytes 0.6, Absolute Eosinophils 0.1, Absolute Basophils 0.1 Assessment/Plan Assessment: 81-year-old male with PMH of HTN, HLD, DM, CAD S/P CABG, history of GI bleed , history of renal stone, anxiety non compliant with his home meds presented in ER for left-sided facial droop, unsteady gait, fall and one episode of vomiting. For 2 days which make him outside of the TPA window. Patient's blood pressure is significantly elevated, patient had been noncompliant with medication at home. #Suspected CVA: Continue to monitor on telemetry Vitals every shift Neuro checks every 2 hours MRI brain We'll follow-up on neurology recommendation Continue statin, Plavix Continue aspirin 81 mg daily #Hypertensive urgency Systolic Blood pressure was noticed to be above 200 We'll continue home meds including lisinopril and carvedilol Start Amlodipine 5 mg PO daily Allow permissive hypertension(A 20% drop in BP is acceptable over the next 24 hours) Echocardiography # DM: Controlled Fingerstick glucose Insulin sliding scale Patient is full code DVT prophylaxis with subcutaneous heparin Heart healthy diet Problem List: 1. Non compliance with medical treatment 2. Non compliance w medication regimen 3. HTN (hypertension) 4. CVA (cerebral vascular accident) Pain Ratin Pain Location: n/a Pain Goal: Remain pain free Pain Plan: pathway Tomorrow's Labs & Rationales: cbc Brenton Elkins MD 09/05/17 2233: Attending MD Review Statement Attending Statement Attending MD Statement: examined this patient, discuss w/resident/PA/FLOWER BUNCHER OR PICKER, agreed w/resident/PA/FLOWER BUNCHER OR PICKER, discussed with family, reviewed EMR data (avail), discussed with nursing, discussed with case mgmt, reviewed images, amended to note Attending Assessment/Plan: The patient was seen and discussed with house staff and family. MRI confirms new CVA along with prior unknown CVA. Social service consult appreciated and patient to receive 1 month of medications upon discharge. Attempting to restart HUSKY. Would benefit form OP speech therapy if obtains insurance.
[2017-09-05 07:54] LABS: ABSOLUTE BASOPHIL COUNT 0.1 /CUMM (0.0-0.2); ABSOLUTE EOSINOPHIL COUNT 0.1 /CUMM (0.0-0.7); ABSOLUTE GRANULOCYTE CT 4.3 /CUMM (1.4-6.5); ABSOLUTE LYMPH COUNT 2.3 /CUMM (1.2-3.4); ABSOLUTE MONOCYTE COUNT 0.6 /CUMM (0.10-0.60); BASOPHIL % 0.8 % (0.0-2.0); EOSINOPHIL % 1.5 % (0-5); GRANULOCYTE % 57.5 % (42.2-75.2); HEMATOCRIT 42.8 % (42-52); MEAN CORPUSCULAR HGB 30.2 PG (27.0-31.0); MEAN CORPUSCULAR HGB CONC 33.8 G/DL (33.0-37.0); MEAN CORPUSCULAR VOLUME 89.1 FL (80.0-94.0); MEAN PLATELET VOLUME 10.7 FL (7.4-10.4); PLATELET COUNT 179 /CUMM (130-400); RBC DISTRIBUTION WIDTH 12.8 % (11.5-14.5); WHITE BLOOD CELL COUNT 7.4 /CUMM (4.8-10.8)
--- NOTE | 2017-09-05 11:38 | MRI REPORT ---
EXAMINATION: MR BRAIN WITHOUT CONTRAST CLINICAL INFORMATION: Ophthalmoplegia. CT head negative for acute stroke. Left-sided facial weakness. COMPARISON: CTA of the head and neck 09/04/2017. TECHNIQUE: Multiplanar, multisequence imaging of the brain was performed without intravenous contrast. \H\ \N\FINDINGS: There is a small acute lacunar infarct within the left pontine tegmentum (which involves the facial colliculus) compatible with a paramedian pontine jute bag sewer infarct. There is no acute large territory infarction. There is no intracranial hemorrhage, mass, mass effect, or midline shift. There is redemonstration of an old infarct within the right MCA territory (with some associated cortical laminar necrosis) involving the middle and inferior frontal gyri and anterior insula. There are chronic infarcts within the bilateral deep frontal and parietal white matter and lacunar infarcts within the bilateral basal ganglia and bilateral thalami. There are chronic small border zone infarcts within both cerebellar hemispheres. There is moderate confluent and patchy T2 hyperintensity throughout the bilateral cerebral white matter and central suzette reflecting small vessel ischemic changes. There is mild diffuse brain parenchymal volume loss with prominence of the ventricles and sulci. There is no evidence of hydrocephalus. The major arterial flow voids are preserved. The extracranial structures are otherwise within normal limits. IMPRESSION: 1. Small acute lacunar infarct within the left pontine tegmentum involving the facial colliculus reflecting a paramedian pontine jute bag sewer infarction. No acute large territory infarct is seen. 2. Redemonstration of chronic infarct in the right MCA territory involving the middle and inferior frontal gyri and anterior insula in addition to chronic lacunar infarcts within the bilateral basal ganglia, bilateral thalami, and border zone infarcts in both cerebellar hemispheres. 3. Moderate chronic small vessel ischemic changes and mild diffuse brain parenchymal volume loss.
[2017-09-05] MEDS ORDERED: CARVEDILOL6.25 M1 PO (13:56)
[2017-09-05] MEDS ORDERED: PLAVIX75 M1 PO (13:56)
[2017-09-05] MEDS ORDERED: ATORVASTATIN CA80 M1 PO (13:56)
[2017-09-05] MEDS ORDERED: ENALAPRIL MALEA20 M1 PO (13:56)
[2017-09-05] MEDS ORDERED: ASPIRIN81 M4 PO (13:56)
[2017-09-05] MEDS ORDERED: NORVASC10 M1 PO (14:00)
--- NOTE | 2017-09-05 14:20 | ECHOCARDIOGRAM REPORT ---
DANILO BOB Age: 81 : 1935 Gender: M Exam Date: 09/04/2017 19:07 Exam Location: 1 [address] Ht (in): 74 Wt (lb): 180 BSA: 2.06 BP: 204 / 98 Ordering Physician: Araceli Agudelo MD Referring Physician: Etienne Bill MD, PhD Technologist: So Inman [facility] Room Number: [id number] Indications: TIA Rhythm: Technical Quality: good FINDINGS Left Ventricle Normal left ventricular size with moderate left ventricular hypertrophy. Normal systolic function with no obvious regional wall motion abnormalities. Diastolic filling pattern is consistent with impaired LV relaxation. The ejection fraction is visually estimated at 80%. Right Ventricle The right ventricle is normal in size and function. Right Atrium The right atrium is normal in size. Left Atrium The left atrium is moderately dilated. The interatrial septum is intact. Mitral Valve The mitral valve is normal in structure and function. There is mild mitral regurgitation. Aortic Valve Mild to moderately thickened and sclerotic aortic valve with mild stenosis. There is trace aortic regurgitation. Tricuspid Valve The tricuspid valve is normal in structure and function. There is trace tricuspid regurgitation. Pulmonary artery systolic pressure is normal. Pulmonic Valve Structurally normal pulmonic valve. There is trace pulmonic regurgitation. Pericardium Normal pericardium without effusion. No pleural effusion. Great Vessels Normal aortic root dimension. The aortic arch and great vessels are well seen and are normal. CONCLUSIONS 1. Normal EF of 80% with impaired LV relaxation. 2. Moderate left ventricular hypertrophy. 3. Moderate left atrial enlargement. 4. Mild mitral regurgitation. 5. Trace tricuspid regurgitation. 6. Trace aortic regurgitation with mild aortic stenosis. 7. Trace pulmonic regurgitation. Etienne Bill M.D. (Electronically Signed) Final Date: 05 September 2017 14:19 MEASUREMENTS (Male / Female) Normal Values 2D ECHO LV Diastolic Diameter PLAX 3.4 cm 4.2 - 5.9 / 3.9 - 5.3 cm LV Systolic Diameter PLAX 2.3 cm 2.1 - 4.0 cm LV Fractional Shortening PLAX 32.4 % 25 - 46 % LV Ejection Fraction 2D Teich 61.8 % IVS Diastolic Thickness 1.6 cm LVPW Diastolic Thickness 1.6 cm LV Relative Wall Thickness 0.9 RV Internal Dim ED PLAX 3.0 cm 1.9 - 3.8 cm LVOT Diameter 2.0 cm Aortic Root Diameter 3.3 cm LA Systolic Diameter LX 4.9 cm 3.0 - 4.0 / 2.7 - 3.8 cm LA Volume 50.0 cm 18 - 58 / 22 - 52 cm Ascending Aorta Diameter 3.6 cm DOPPLER AV Peak Velocity 236.0 cm/s AV Peak Gradient 22.3 mmHg AV Mean Velocity 160.0 cm/s AV Mean Gradient 12.0 mmHg AV Velocity Time Integral 50.9 cm LVOT Peak Velocity 112.0 cm/s LVOT Peak Gradient 5.0 mmHg LVOT Mean Velocity 69.9 cm/s LVOT Mean Gradient 2.0 mmHg LVOT Velocity Time Integral 31.9 cm LVOT Stroke Volume 100.2 cm AV Area Cont Eq vti 2.0 cm AV Area Cont Eq pk 1.5 cm MV Peak Velocity 145.0 cm/s MV Peak Gradient 8.4 mmHg MV Mean Velocity 55.7 cm/s MV Mean Gradient 2.0 mmHg Mitral E Point Velocity 56.8 cm/s Mitral A Point Velocity 119.0 cm/s Mitral E to A Ratio 0.5 MV PHT Velocity 71.8 cm/s MV Deceleration [place] 148.0 cm/s MV Pressure Half Time 145.5 ms MV Area PHT 1.5 cm MV Deceleration Time 423.0 ms TR Peak Velocity 137.0 cm/s TR Peak Gradient 7.5 mmHg Right Atrial Pressure 5.0 mmHg Pulmonary Artery Systolic Pressu 12.5 mmHg Right Ventricular Systolic Press 12.5 mmHg PV Peak Velocity 112.0 cm/s PV Peak Gradient 5.0 mmHg PV Mean Velocity 80.0 cm/s PV Mean Gradient 3.0 mmHg PV Velocity Time Integral 26.3 cm LV E' Lateral Velocity 7.8 cm/s Mitral E to LV E' Lateral Ratio 7.3 LV E' Septal Velocity 4.2 cm/s Mitral E to LV E' Septal Ratio 13.6
[2017-09-05 14:32] VITALS: BP 180/90
[2017-09-05] MEDS ORDERED: LISINOPRIL20 M1 PO (14:46)
--- NOTE | 2017-09-05 14:51 | Discharge Summary ---
Visit Information Visit Dates Admission Date: 09/03/17 Discharge Date: 09/06/17 Hospital Course Course Attending Physician: Brenton Fermin MD [facility]: Mr Luna is a 81 year old Vietnamese speaking man, who is from [facility] was known to be in his usual state of health unitl two days ago prior to admission; last known normal was 48hrs ago by his daughter. History was limited due to language barrier. He was brought in with a chief concern of slurring of speech, gait unstadiness, high blood pressure and a mechanical fall. He has a past medical history of coronary artery disease status post CABG ([facility], 10 years ago, but follows up with Dr. Bill), hyperlipidemia, uncontrolled hypertension (medication noncompliance), history of upper GI bleed, type 2 diabetes, anxiety, nephrolithiasis status post ESWL in 2014. Nonsmoker, nonalcoholic. Travels to [facility] every 6 months, and lives with his son. No previous episode of stroke in the past. The symptoms were noticed 48 hrs prior to the presentation, with gait unsteadiness that began acutely. He later developed slurred speech, and had word finding difficulty. He was reluctant to seek medical attention, and was brought in after he had a mechanical fall the a.m. of presentation. He did not have any loss of consciousness, bladder bowel dysfunction, seizures, vision changes. Reported history of glaucoma, but did not have not have any new visual defects. No vertigo, new hearing deficits, no vertigo new hearing deficits. Other cardiac related review of systems such as palpitations, chest pain, shortness of breath, lightheadedness negative. At the time of admission, vitals-temperature 97.4, pulse rate 65, respiration 18 , blood pressure 208/81, 97% on room air. On examination, he was alert and oriented 3. No pallor was noted. He had right-sided facial droop, weakness on left side of the face, drooling on right side, horizontal gaze was affected with clear lateral gaze palsy, vertical gaze and affected. Other cranial levels within normal limits. Sensory system within normal limits. Right-sided knee reflex 1+. No cerebellar deficits, but gait could not be tested. Cardio vascular examination revealed right-sided carotid murmur, crescendo decrescendo systolic murmur. Lung examination within normal limits. Pertinent lab findings-WBC 7.8, hemoglobin 14.4. Glucose 208, platelets 170. BUN 23, serum creatinine 1.0. Liver chemistries within normal limits. Cardiac enzymes-troponin 0.02, 0.04. EKG revealed normal sinus rhythm, normal axis, T- wave flattening diffusely in V4-V6, and inferior leads. CT scan of the head did not reveal any acute intracranial pathology such as infarcts or hemorrhage, however. An old right MCA territory infarction with no midline shift. Head CT:No evidence for acute intracranial injury. . Chronic changes as stated above. Head CTA:1. There are no acute bleeds or territorial infarcts. There are no masses or areas of abnormal enhancement. 2. There are sequelae of a chronic infarct in the right frontal lobe. There is diffuse volume loss and there are chronic microvascular ischemic changes. There are thalamic lacunar infarcts. 3. 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 4. No focal stenoses or vascular malformations are noted in the intracranial circulation. There is mild irregularity of the AICA vessels bilaterally as described above. Neck CTA: Atheromatous changes in the neck including at the bilateral carotid bifurcations but without hemodynamically significant stenosis. Brain MRI:1. 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 No acute large territory infarct is seen. 2. Redemonstration of chronic infarct in the right MCA territory involving the middle and inferior frontal gyri and anterior insula in addition to chronic lacunar infarcts within the bilateral basal ganglia, bilateral thalami, and border zone infarcts in both cerebellar hemispheres. 3. Moderate chronic small vessel ischemic changes and mild diffuse brain parenchymal volume loss. Echocardiography:1. Normal EF of 80% with impaired LV relaxation. 2. Moderate left ventricular hypertrophy. 3. Moderate left atrial enlargement. 4. Mild mitral regurgitation. 5. Trace tricuspid regurgitation. 6. Trace aortic regurgitation with mild aortic stenosis. 7. Trace pulmonic regurgitation. 1. Small acute pontine lacunar infarct: MRI showed small acute lacunar infarct at the left pontine tegmentum Patient presented for 48 hours after the beginning of his symptoms which brought him out of the window for TPA, patient was admitted to telemetry floor, he was monitored with neuro checks every 2 hours, neurology consult was placed and they recommended starting him on Plavix 75 mg, statin and aspirin 81 mg. 2.Hypertensive urgency: Most likely due to medication noncompliance as the patient recently lost his medical insurance. Blood pressure was controlled with lisinopril, carvedilol, amlodipine 10 mg was added, permissive hypertension was allowed to avoid further injury to the brain. 3. Diabetes: patient on sulfonylurea. Discontinue at this time. Start insulin sliding scale , Accu-Cheks every 6. Patient blood sugar was moderately elevated , he was discharged on Metformin 1. DVT prophylaxis-subcutaneous heparin. 2. Precautions-fall. 3. IV lines-peripheral. Allergies: Coded Allergies: NO KNOWN ALLERGIES (12/02/14) Disposition Summary Disposition Principal Diagnosis: Small acute pontine lacunar infarct Additional Diagnosis: Hypertensive urgency Diabetes mellitus Discharge Disposition: home or self care Discharge Instructions General Discharge Information Code Status: Full Code Patient's Diet: Heart healthy Patient's Activity: As tolerated Follow-Up Instructions/Appts: 1please follow-up with your PCP in 1 week discharge 2please take medications as advised Medications at Discharge Discharge Medications: Continue taking these medications: Gabapentin (Neurontin) 100 MG CAPSULE 1 Capsule ORAL THREE TIMES DAILY Comments: NOT GIVEN IN HOSPITAL Pantoprazole Sodium (Pantoprazole Sodium) 40 MG TABLET.DR 1 Tablet ORAL DAILY Comments: NOT GIVEN IN HOSPITAL Start taking the following new medications: Metformin HCl (Metformin HCl ER) 500 MG TAB.ER.24 1 Tablet ORAL TWICE DAILY Qty = 60 No Refills Comments: NOT GIVEN IN HOSPITAL Clopidogrel Bisulfate (Plavix) 75 MG TABLET 75 Milligram ORAL DAILY Qty = 30 No Refills Comments: Last Taken: 09/06/17 Time: 1024 Atorvastatin Calcium (Atorvastatin Calcium) 80 MG TABLET 80 Milligram ORAL 5 PM Qty = 30 No Refills Comments: Last Taken: 09/05/17 Time: 1742 Aspirin (Aspirin*) 81 MG TAB.CHEW 81 Milligram ORAL DAILY Qty = 30 No Refills Comments: Last Taken: 09/06/17 Time: 1022 Lisinopril (Lisinopril) 40 MG TABLET 1 Tablet ORAL DAILY Qty = 30 No Refills Comments: Last Taken: 09/06/17 Time: 1024 Alprazolam (Xanax) 0.25 MG TABLET 1 Tablet ORAL DAILY NEEDED Qty = 30 No Refills Comments: NOT GIVEN IN HOSPITAL Amlodipine Besylate (Amlodipine Besylate) 10 MG TABLET 1 Tablet ORAL DAILY Qty = 30 No Refills The following medications have been changed: Old: Carvedilol (Carvedilol) 6.25 MG TABLET 1 Tablet ORAL TWICE DAILY New: Carvedilol (Carvedilol) 6.25 MG TABLET 1 Tablet ORAL TWICE DAILY Qty = 60 Instructions: . Comments: Last Taken: 09/06/17 Time: 1024 Copies To: Ruby Vincent APRN Attending MD Review Statement Documenting Attending: Brenton Fermin MD Other Findings: The patient was seen and discussed with house staff. The patient was given 1 month supply of medication. He lost his [employer] insurance due to having left the country for 3 months. The family is attempting to reinstate. If it gets replaced would benefit from OP speech therapy. Need PCP to check BP in 1 week. Should decrease dose of Atorvastatin to 40 mg daily after 1 week.
[2017-09-05] MEDS ORDERED: METFORMIN HCL500 M2 PO ×2 (15:12→15:24)
--- NOTE | 2017-09-05 18:16 | PN- Cardiology ---
Subjective Subjective: * Patient feels improved. Facial droop persistes. * sinus rhythm * Blood pressure remains poorly controlled Objective Vital Signs and I&Os Vital Signs Date Time Temp Pulse Resp B/P B/P Pulse O2 O2 Flow FiO2 Mean Ox Delivery Rate 09/05 1440 180/90 03 1432 97.2 53 18 180/90 96 Room Air 09/05 1223 200/96 09/05 0922 64 164/64 03 0922 64 164/64 09/05 0651 190/92 09/05 0649 97.7 69 18 236/112 94 Room Air 09/05 0615 63 236/110 09/04 2221 97.4 53 18 184/86 97 Room Air 09/04 2200 53 184/86 Intake & Output 09/05 1600 09/05 0800 09/05 0000 09/04 1600 09/04 0800 09/04 0000 Intake Total 500 0 Output Total 500 Balance 500 -500 0 Intake, Oral 500 0 Output, Urine 500 Patient 232 lb 180 lb Weight Weight Estimated Measurement Method Physical Exam: General: WD/WN male in NAD; alert and oriented x 3 Neck: no JVD, no carotid bruit Heart: RRR with 2/6 systolic murmur Lungs: clear bilaterally Extremties: No edema Assessment/Plan Assessment/Plan * This patient continues to have an elevated blood pressure. Stop Amlodipine and begin Nifedipine ER 30mg daily and increase Lisinopril to 40mg daily. Continue Coreg at its current dose along with a low sodium diet. Our BP goal is 140/85. Continue telemetry? Yes
[2017-09-06 00:28] VITALS: BP 158/86
[2017-09-06 06:55] VITALS: BP 210/100
[2017-09-06 07:02] VITALS: BP 166/82
--- NOTE | 2017-09-06 08:23 | PN- Housestaff ---
See Addendum Subjective Follow-up For: Suspected CVA Hypertensive urgency Subjective: Patient is seen and examined at bedside, swazi speaking and does not provide any complaints, continues to have facial droop, blood pressure was noticed to be better controlled today Review of Systems Constitutional: Reports: see HPI. Objective Last 24 Hrs of Vital Signs/I&O Vital Signs Date Time Temp Pulse Resp B/P B/P Pulse O2 O2 Flow FiO2 Mean Ox Delivery Rate 09/06 1024 60 166/82 09/06 1024 60 166/82 09/06 1024 60 166/82 09/06 0702 166/82 09/06 0655 98.2 60 18 210/100 95 Room Air 09/06 0634 54 210/100 09/06 0028 98.3 66 18 158/86 95 Room Air 09/06 0000 Room Air 09/05 2222 64 158/66 09/05 1440 180/90 09/05 1432 97.2 53 18 180/90 96 Room Air Intake & Output 09/06 1600 09/06 0800 09/06 0000 Intake Total 400 460 Output Total 750 Balance -350 460 Intake, IV 10 Intake, Oral 400 450 Number 0 Bowel Movements Output, Urine 750 Patient 232 lb Weight Physical Exam General Appearance: Alert, Oriented X3, Cooperative, No Acute Distress HEENT: Atraumatic, PERRLA, EOMI, Mucous Membr. moist/pink Neck: Supple, No JVD Cardiovascular: Normal S1, Normal S2, No Murmurs Lungs: Clear to Auscultation Abdomen: Normal Bowel Sounds, Soft, No Tenderness Neurological: Normal Speech, Strength at 5/5 X4 Ext, Normal Tone, Sensation Intact, right facial droop Extremities: No Clubbing, No Cyanosis, No Edema Vascular: Normal Pulses Assessment/Plan Assessment: 81-year-old male with PMH of HTN, HLD, DM, CAD S/P CABG, history of GI bleed , history of renal stone, anxiety non compliant with his home meds presented in ER for left-sided facial droop, unsteady gait, fall and one episode of vomiting. For 2 days which make him outside of the TPA window. Patient's blood pressure is significantly elevated, patient had been noncompliant with medication at home. #Suspected CVA: Continue to monitor on telemetry Vitals every shift Neuro checks every 2 hours MRI brain We'll follow-up on neurology recommendation Continue statin, Plavix Continue aspirin 81 mg daily #Hypertensive urgency Systolic Blood pressure was noticed to be above 200 We'll continue home meds carvedilol Increase lisinopril to 40 mg daily DC Amlodipine 5 mg PO daily Started nifedipine 30 mg daily Allow permissive hypertension(A 20% drop in BP is acceptable over the next 24 hours) Echocardiography # DM: Controlled Fingerstick glucose Insulin sliding scale Patient is stable to be discharged home today Patient is full code DVT prophylaxis with subcutaneous heparin Heart healthy diet Problem List: 1. Non compliance with medical treatment 2. HTN (hypertension) 3. CVA (cerebral vascular accident) Pain Ratin Pain Location: N/A Pain Goal: Remain pain free Pain Plan: per pathway Tomorrow's Labs & Rationales: none
[2017-09-06 08:37] LABS: ABSOLUTE BASOPHIL COUNT 0.1 /CUMM (0.0-0.2); ABSOLUTE EOSINOPHIL COUNT 0.2 /CUMM (0.0-0.7); ABSOLUTE GRANULOCYTE CT 3.6 /CUMM (1.4-6.5); ABSOLUTE MONOCYTE COUNT 0.6 /CUMM (0.10-0.60); EOSINOPHIL % 2.4 % (0-5); GRANULOCYTE % 55.1 % (42.2-75.2); HEMATOCRIT 41.2 % (42-52); MEAN CORPUSCULAR HGB 30.4 PG (27.0-31.0); MEAN CORPUSCULAR HGB CONC 33.9 G/DL (33.0-37.0); MEAN CORPUSCULAR VOLUME 89.8 FL (80.0-94.0); MEAN PLATELET VOLUME 10.8 FL (7.4-10.4); PLATELET COUNT 170 /CUMM (130-400); RBC DISTRIBUTION WIDTH 12.7 % (11.5-14.5); RED BLOOD CELL CT 4.59 /CUMM (4.70-6.10); WHITE BLOOD CELL COUNT 6.5 /CUMM (4.8-10.8)
[2017-09-06] MEDS ORDERED: NIFEDIPINE ER30 M2 PO (10:00)
[2017-09-06] MEDS ORDERED: LISINOPRIL20 M1 PO (10:00)
[2017-09-06] MEDS ORDERED: LISINOPRIL40 M1 PO (10:02)
[2017-09-06 10:24] VITALS: BP 166/82
[2017-09-06] MEDS ORDERED: XANAX0.25 M1 PO (11:25)
[2017-09-06] MEDS ORDERED: AMLODIPINE BESY10 M1 PO (12:49)
== END 2017-09-06 14:00 | DRG 45 ==
LOC: ERH 17:27 → 1NO 19:36 → ERHI 19:36 → ENRESERV 09-04 12:56 → ENTRNSPT 09-04 13:53 → EDTRNSPT 09-04 14:05 → EDTRNSPTSTS 09-04 14:05 → EDTRNSPT 09-04 14:15 → CMPTRNSPT 09-04 14:30 → 1NO 09-04 14:36 → ENPENDDIS 09-06 12:08 → ENTRNSPT 09-06 13:48 → 1NO 09-06 14:00 → CMPTRNSPT 09-06 14:09
PROVIDERS: Internal Medicine Endocrinology, Diabetes & Metabolism; Physician Assistant Medical; Student in an Organized Health Care Education/Training Program
DX: I63.9 Cerebral infarction, unspecified (principal); E11.9 Type 2 diabetes mellitus without complications; I67.1 Cerebral aneurysm, nonruptured; I25.10 Atherosclerotic heart disease of native coronary artery without angina pectoris; Z95.1 Presence of aortocoronary bypass graft; E78.5 Hyperlipidemia, unspecified; R47.81 Slurred speech; F41.9 Anxiety disorder, unspecified; Z91.14 Patient's other noncompliance with medication regimen; R26.81 Unsteadiness on feet; I16.0 Hypertensive urgency; I10 Essential (primary) hypertension; Z87.442 Personal history of urinary calculi; Z86.73 Personal history of transient ischemic attack (TIA), and cerebral infarction without residual deficits
CPT/HCPCS: 1NSP; 70551; ERO; 36592; 82436; 93005; 93010; 93306; 97112-GO; 97116-GO; 97161-GP; 97166-GO; 97530-GO; J0360; J1644; J3490